=== PATIENT | female | born 1995 | race Caucasian/White ===

== ENCOUNTER 2017-09-14 18:53 | Emergency (ER) | payer OTHER ==
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
[2017-09-14 20:24] VITALS: BP 136/79; PULSE 92; RESP 16; TEMP 98.6; O2SAT 98
== END 2017-09-14 20:22 | disposition home or self-care (01) ==
DX: S80.02XA Contusion of left knee, initial encounter (principal); V49.49XA Driver injured in collision with other motor vehicles in traffic accident, initial encounter; Y92.410 Unspecified street and highway as the place of occurrence of the external cause; Y99.8 Other external cause status; Y93.89 Activity, other specified
CPT/HCPCS: L1830

== ENCOUNTER 2017-12-27 02:29 | Emergency (ER) | payer OTHER ==
[2017-12-27 02:34] VITALS: BP 160/98
--- NOTE | 2017-12-27 02:34 | EDPHY ---
H & P Stated Complaint: l ear pain Time Seen by Provider: 12/27/17 02:34 HPI/ROS: HPI CHIEF COMPLAINT: Left ear pain. HISTORY OF PRESENT ILLNESS: 22-year-old female she is otherwise healthy denies any significant medical history she presents emergency room with left ear pain. This started suddenly awoke her from sleep about an hour ago. Denies any drainage from the ear. Current level pain 8/10. Upon evaluation of left TM and ear canal there is a bug in her ear that is actively moving. Past Medical History: No medical history Past Surgical History: No surgical history Social History: Denies drugs alcohol tobacco. Accompanied by her father at bedside. Family History: Noncontributory. ROS REVIEW OF SYSTEMS: A comprehensive 10 point review of systems is otherwise negative aside from elements mentioned in the history of present illness. Exam Constitutional triage nursing summary reviewed, vital signs reviewed, awake/ alert. Eyes normal conjunctivae and sclera, EOMI, PERRLA. HENT right TM visualized and canal visualize normal, left TM intact, not purpura , left ear canal shows a insect in her ear actively moving, moist mucus membranes, no epistaxis, neck supple/ no meningismus, no raccoon eyes. Respiratory clear to auscultation bilaterally, normal breath sounds, no respiratory distress, no wheezing. Cardiovascular rate normal, regular rhythm, no murmur, no edema, distal pulses normal. Gastrointestinal soft, non-tender, no rebound, no guarding, normal bowel sounds, no distension, no pulsatile mass. Genitourinary no CVA tenderness. Musculoskeletal no midline vertebral tenderness, full range of motion, no calf swelling, no tenderness of extremities, no meningismus, good pulses, neurovascularly intact. Skin pink, warm, & dry, no rash, skin atraumatic. Neurologic awake, alert and oriented x 3, AAOx3, moves all 4 extremities equally, motor intact, sensory intact, CN II-XII intact, normal cerebellar, normal vision, normal speech. Psychiatric normal mood/affect. Heme/Lymph/Immune no lymphadenopathy. Differential Diagnosis: Includes but is not limited to in a particular order: Foreign body ear canal, perforated TM, otitis media, otitis externa Medical Decision Making: Plan for this patient there is an active alive bug in her left ear canal causing her discomfort plan will be to irrigating flush the bug out of her left ear canal. Re-evaluation: 0415: Were able to irrigate the bug out of the left ear. Patient feels better. Re-evaluation after but removal TM is intact no evidence of trauma. No further significant pain. Source: Patient - Personal History LMP (Females 10-55): 22-28 Days Ago Current Tetanus/Diphtheria Vaccine: Yes Current Tetanus Diphtheria and Acellular Pertussis (TDAP): Yes - Medical/Surgical History Hx Asthma: No Hx Chronic Respiratory Disease: No Hx Diabetes: No Hx Cardiac Disease: No Hx Renal Disease: No Hx Cirrhosis: No Hx Alcoholism: No Hx HIV/AIDS: No Hx Splenectomy or Spleen Trauma: No Other PMH: l foot surgery - Social History Smoking Status: Never smoked Constitutional: Initial Vital Signs Temperature (C) 36.5 C 12/27/17 02:30 Heart Rate 115 H 12/27/17 02:30 Respiratory Rate 18 12/27/17 02:30 Blood Pressure 160/98 H 12/27/17 02:30 O2 Sat (%) 96 12/27/17 02:30 O2 Delivery Mode Room Air Allergies/Adverse Reactions: No Known Allergies Allergy (Verified 09/14/17 19:02) Home Medications: Medication Instructions Recorded Violetta 28 Day Tablet 09/14/17 Departure - Departure Disposition: Home, Routine, Self-Care Clinical Impression: Ear ache Foreign body in ear Qualifiers: Encounter type: initial encounter Laterality: left Qualified Code(s): T16.2XXA - Foreign body in left ear, initial encounter Condition: Good Instructions: Ear Foreign Body (ED) Referrals: Luisa Ott, PAC [Primary Care Provider] - As per Instructions
== END 2017-12-27 04:51 | disposition home or self-care (01) ==
DX: T16.2XXA Foreign body in left ear, initial encounter (principal); X58.XXXA Exposure to other specified factors, initial encounter